=== PATIENT | male | born 1980 ===

== ENCOUNTER 2023-11-10 09:16 | Outpatient (AMB) | payer OTHER, SELFPAY ==
--- NOTE | 2023-11-10 09:43 | MHC.OFFWIV ---
Intake Vital Signs 11/10/23 09:46 Height 5 ft 5 in Weight 166 lb 2 oz BMI 27.6 BP 118/72 Blood Pressure Location Rt brachial Position Sitting Respiration 16 Pulse 79 Pulse Source Pulse Oximeter Temp 98.0 F Temp Source Oral Pulse Oximetry (%) 98 Oxygen Delivery Method Room Air Intake Visit Reasons: EST/ Cut on right pointer Intake Note: patient here c/o cut on right pointer. 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 He sustained the cut from a glass 2 days ago. He has been applying dressing changes daily; however, the bleeding has not stopped. He denies pain, fever, chills, or body aches. He denies history of blood disorders or clotting. He is not anticoagulants or any medication. He does not recall his last tetanus vaccine. [facility] Social History Patient Tobacco Use Status: Current everyday Tobacco user Review of Systems Const Details: Const Denies chills, Denies fatigue, Denies fever(s), Denies headache(s) and Denies weakness ENT Denies change in vision, Denies dizziness, Denies headache(s), Denies hearing loss, Denies nasal congestion, Denies sinus pain, Denies sinus pressure and Denies sore throat Resp Denies cough, Denies dyspnea, Denies wheezing and Denies other (shortness of breath) Cardio Denies chest pain, Denies lightheadedness, Denies dyspnea and Denies other (palpitations) Neuro Denies dizziness, Denies headache(s), Denies numbness, Denies tingling and Denies weakness Skin Reports as per HPI Endo Denies fatigue Aller/Immun Denies wheezing Physical Exam Vital Signs: Last Vital Signs Temp 98.0 F 11/10/23 09:46 Pulse 79 11/10/23 09:46 Resp 16 11/10/23 09:46 BP 118/72 11/10/23 09:46 Pulse Ox 98 11/10/23 09:46 Oxygen Delivery Method Room Air 11/10/23 09:46 BMI result Body Mass Index 27.6 Const Other: Const General: well developed; No acute distress Nutritional Appearance: well nourished Orientation/consciousness: patient oriented x3 HEENT Head: Yes normocephalic and Yes atraumatic Eyes General: appearance normal, both eyes and all related structures Pupils: Equal, round and reactive pupils present EOM: EOMs intact bilaterally Resp Effort & Inspection: normal respiratory effort Auscultation: clear to auscultation bilaterally Cardio Rate: regular rate Rhythm: regular rhythm Heart sounds: S1 normal heart sound present, S2 normal heart sound present, no gallops, no murmurs and no rubs Bruits: no abdominal aortic bruits and no carotid bruits Neuro General: patient oriented x3 and gait normal, no focal neuro deficit Cranial nerves: Yes Equal, round and reactive pupils present Skin Small superficial wound noted to the tip of the right index finger. Wound is open, edges are not approximated. Wound bed is pink. No active drainage or bleeding. No erythema, edema or overt signs of infection Psych Affect: normal affect Assessment & Plan Assessment & Plan (1) Finger wound, simple, open: Code(s): S61.209A - Unspecified open wound of unspecified finger without damage to nail, initial encounter Plan: Patient reports wound to his right index finger from a glass injury 2 days ago. He has not been able to contain the bleeding Small superficial wound noted to the tip of the right index finger. Wound is open, edges are not approximated. Wound bed is pink. No active drainage or bleeding. No erythema, edema or overt signs of infection Wound care perform an instructed. Band-Aid applied. Advised to perform wound care once or twice daily. Instructed on signs and symptoms of infection to monitor and follow-up with his PCP promptly Tetanus vaccine administered by our nurse today He verbalized understanding and agreed with the treatment plan Orders: Orders TDaP Immunization Today Z23 - Encounter for immunization Coding Level of Care Code New Pt Level 4 (37543) Diagnoses Finger wound, simple, open S61.209A
[2023-11-10 09:46] VITALS: BP 118/72; PULSE 79; RESP 16; TEMP 36.7; O2SAT 98; BMI 27.6
== END 2023-11-10 10:30 | disposition home or self-care (01) ==
PROVIDERS: Visit Provider Nurse Practitioner Family
DX: S61.209A Unspecified open wound of unspecified finger without damage to nail, initial encounter (principal); Z23 Encounter for immunization
CPT/HCPCS: 90471; 90715; 99204